=== PATIENT | female | born 1960 | race Caucasian/White ===

== ENCOUNTER 2020-01-06 05:04 | Day surgery (SDC) | payer MEDICARE, OTHER ==
[2020-01-06] VITALS (9 sets, daily range): BP systolic 81–130; BP diastolic 49–72
[~2020-01-06] VITALS: Ht 165.1 cm; Wt 81.0 kg
[~2020-01-06 05:04] MED LIST: ATOR40TA PO; KEP500T PO; OMEP10CA5 PO
[2020-01-06] MEDS ORDERED: LIDOcaine/PRILOcaine 5gm cream TP ONE (05:20)
[2020-01-06] MEDS ORDERED: diphenhydrAMINE 25mg capsule PO PRN (05:20)
[2020-01-06] MEDS ORDERED: LORazepam 0.5 MG tablet PO PRN (05:20)
[2020-01-06] MEDS ORDERED: normal saline 1,000 ML IV SCH (05:20)
[2020-01-06] MEDS ORDERED: TOP100T PO (05:33)
[2020-01-06] MEDS ORDERED: EST1T PO (05:33)
[2020-01-06] MEDS ORDERED: FIORINAL PO (05:34)
[2020-01-06] MEDS ORDERED: AMIT-189 PO (05:35)
[2020-01-06] MEDS ORDERED: TORS20TA3 PO (05:35)
[2020-01-06] MEDS ORDERED: TIZA2TAB7 PO (05:36)
[2020-01-06] MEDS ORDERED: CLON-527 PO (05:36)
[2020-01-06] MEDS ORDERED: midazolam 2 mg/2 ml injection ONE (05:59)
[2020-01-06] MEDS ORDERED: LIDOcaine 1% (10mg/ml)w/preservative injection 20ml MDV ONE (05:59)
[2020-01-06] MEDS ORDERED: verapamil 2.5 mg/ml inj IV ONE (05:59)
[2020-01-06] MEDS ORDERED: nitroGLYCERIN-Tridil 50MG/D5W 250 ML IV ONE (05:59)
[2020-01-06] MEDS ORDERED: iohexol 350MG/ML 100ml bottle IV ONE (05:59)
[2020-01-06] MEDS ORDERED: heparin 1,000unit/ml 10ml vial 10 ML ONE (05:59)
[2020-01-06] MEDS ORDERED: fentaNYL/PF 50MCG/1 ML 2ML syringe ONE (05:59)
[2020-01-06 06:15] LABS: ALANINE AMINOTRANSFERASE 32 U/L (12-78); ALBUMIN 3.1 G/DL (3.4-5.0); ALBUMIN/GLOBULIN RATIO 0.8 (1.1-1.5); ALKALINE PHOSPHATASE 131 IU/L (46-116); ANION GAP 8 (8-16); ASPARTATE AMINO TRANSFERASE 40 U/L (10-37); BILIRUBIN,TOTAL 0.3 MG/DL (0.1-1.0); BLOOD UREA NITROGEN 10 MG/DL (7-18); BUN/CREATININE RATIO 10.1 (6.6-38.0); CALCIUM 8.6 MG/DL (8.5-10.1); CHLORIDE 103 MMOL/L (99-107); CREATININE 0.99 MG/DL (0.40-0.90); GLUCOSE 94 MG/DL (70-104); SODIUM 139 MMOL/L (135-145); TOTAL CARBON DIOXIDE 27.7 MMOL/L (24-32); TOTAL PROTEIN 7.1 G/DL (6.4-8.2); eGFR 57 ML/MIN
[2020-01-06 06:19] LABS: POTASSIUM 2.9 MMOL/L (3.5-5.1)
--- NOTE | 2020-01-06 06:20 | NUR ---
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
[2020-01-06] MEDS ORDERED: POTA20TA19 PO (06:23)
[2020-01-06] MEDS ORDERED: potassium Cl 20 mEq SR tablet PO STA (06:31)
[2020-01-06] MEDS ORDERED: HYDROcodone/acetaminophen 5mg/325mg tablet PO PRN (07:40)
[2020-01-06] MEDS ORDERED: proCHLORperazine 10 MG/2 ml inj IV PRN (07:40)
[2020-01-06] MEDS ORDERED: HYDROcodone/acetaminophen 10/325mg tab PO PRN (07:40)
[2020-01-06] MEDS ORDERED: ondansetron/PF 4mg/2ml inj IV PRN (07:40)
[2020-01-06] MEDS ORDERED: OXAZEpam 15mg capsule PO PRN (07:40)
--- NOTE | 2020-01-06 09:12 | NUR ---
Pt ambulated to bathroom, voided.
== END 2020-01-06 11:00 | disposition home or self-care (01) ==
LOC: SSTAY O 05:04
PROVIDERS: ATTEND Student in an Organized Health Care Education/Training Program
DX: I25.10 Atherosclerotic heart disease of native coronary artery without angina pectoris (principal); R94.30 Abnormal result of cardiovascular function study, unspecified; I47.1 Supraventricular tachycardia; E78.5 Hyperlipidemia, unspecified; R07.2 Precordial pain; E87.5 Hyperkalemia
CPT/HCPCS: 36415; 80053; 93005; 93458; C1769; C1894; J1644; J2001; J2250; J3010; Q9967; 99152; 99153; A4620; A5120; J3490